=== PATIENT | male | born 1990 | race Caucasian/White ===

== ENCOUNTER 2017-03-19 12:09 | Emergency (ER) | payer MEDICAID ==
[~2017-03-19] VITALS: Ht 188 cm; Wt 70.0 kg
[2017-03-19 13:22] LABS: CALCIUM 9.3 mg/dL (8.5-10.1); CHLORIDE SERUM 104 mmol/L (98-107); GFR1 > 60 mL/min; GLUCOSE SERUM 88 mg/dL (74-106); POTASSIUM SERUM 4.4 mmol/L (3.5-5.1); SODIUM SERUM 141 mmol/L (136-145)
[2017-03-19 14:06] VITALS: BP 120/76
== END 2017-03-19 14:06 | disposition home or self-care (01) ==
LOC: ED 12:09
PROVIDERS: Emergency Medicine
DX: R07.89 Other chest pain (principal); F12.229 Cannabis dependence with intoxication, unspecified; R03.0 Elevated blood-pressure reading, without diagnosis of hypertension
CPT/HCPCS: 36415; J1885

== ENCOUNTER 2017-05-19 21:26 | Emergency (ER) | payer MEDICAID ==
[2017-05-20 00:40] VITALS: BP 151/82
== END 2017-05-20 00:40 | disposition home or self-care (01) ==
LOC: ED 21:26
DX: S80.862A Insect bite (nonvenomous), left lower leg, initial encounter (principal); W57.XXXA Bitten or stung by nonvenomous insect and other nonvenomous arthropods, initial encounter; Y93.89 Activity, other specified; Y99.8 Other external cause status; Y92.89 Other specified places as the place of occurrence of the external cause

== ENCOUNTER 2018-08-11 13:26 | Emergency (ER) | payer MEDICAID ==
[~2018-08-11] VITALS: Ht 188 cm; Wt 73.5 kg
[2018-08-11 13:32] VITALS: Ht 188 cm; Wt 73.5 kg
[2018-08-11 16:22] VITALS: BP 135/88
== END 2018-08-11 16:22 | disposition home or self-care (01) ==
LOC: ED 13:26
DX: R55 Syncope and collapse (principal); R10.9 Unspecified abdominal pain